=== PATIENT | female | born 1965 | race Caucasian/White ===

== ENCOUNTER → 2017-06-27 | Day surgery (SDC) | payer OTHER ==
[~2017-06-27] MED LIST: KETOROLAC TROMETHAMINE 30 MG/ML (IVP) VIAL IV PUSH ONE; LACTATED RINGER'S 1000 ML INJ 1,000 ML ONE; MIDAZOLAM HCL 2 MG/2 ML VIAL ONE; ONDANSETRON HCL 4 MG/2 ML VIAL IV PUSH ONE; PROPOFOL 200 MG/20 ML AMP IV ONE; ceFAZolin 2 GM PREMIX 50 ML ONE
--- NOTE | 2017-06-27 20:32 | MP ---
cc: FELIZ SHARMA M.D., STEPHEN J. M.D. DATE OF SURGERY 06/27/2017 PREOPERATIVE DIAGNOSIS Patient with perimenopausal menorrhagia, documented submucous myoma. PROCEDURE Hysteroscopic endoscopy, MyoSure myomectomy with resection of submucous myoma, endometrial ablation with the NovaSure device. POSTOPERATIVE DIAGNOSIS Hysteroscopic endoscopy, MyoSure myomectomy with resection of submucous myoma, endometrial ablation with the NovaSure device. SURGEON David Main MD ANESTHESIA General with LMA. ESTIMATED BLOOD LOSS 50 mL. DRAINS None. OPERATIVE FINDINGS The patient's cervix was slightly patulous and dilated. The endometrial cavity was consistent with the preoperative diagnosis of a posterior 2.5 cm submucous myoma. Endometrial cavity otherwise was unremarkable. INDICATIONS FOR PROCEDURE Patient with increasing heavy menstrual cycles transitioning into menopause. Ultrasound revealed the findings as stated above. Endometrial biopsy and Pap smear previously were benign. The patient elected for hysteroscopic resection with endometrial ablation. DESCRIPTION OF PROCEDURE The patient received 2 grams of Ancef prophylactically. She underwent general anesthesia with LMA placement. She was carefully positioned in dorsolithotomy position using candy-cane stirrups on the lower extremities. She had sequentials placed on lower extremities for VTE prophylaxis. She was prepped and draped and a time-out was then conducted and agreed by all present in the room. Examination of the cervix was identified as above. Simple weighted retractor was used. Cervix was secured anteriorly with a single-tooth tenaculum and then the cervix was dilated to accommodate the MyoSure hysteroscope. The hysteroscope was used with normal saline. Examination of the cavity was described above. The MyoSure device was utilized resecting the myoma posteriorly. Fluid instilled and removed was accounted for. There was o excessive deficit. After completion of the MyoSure portion of the procedure, the NovaSure was utilized. Cavity measurements were set at 6 and 3.5 generated a wattage of 116 pierre on the power generator. Electrodesiccation of the cavity was accomplished after complete seal was made. This required two uses of the NovaSure after excessive fluid removal from the vacuum aspect of the NovaSure became full. This was not complicated and resulted in a good result with electrodesiccation of the cavity. After the completion of the case cavity assessment was intact. There was no perforation. The patient was stable. Full final count was correct. She was taken to recovery room extubated on room air. David Main MD [id number] /1:04 PM /8:23 PM
== END | disposition home or self-care (01) ==
LOC: ESDC 07:12
PROVIDERS: ATTEND Obstetrics & Gynecology
DX: N92.4 Excessive bleeding in the premenopausal period (principal); D25.9 Leiomyoma of uterus, unspecified
CPT/HCPCS: 00952; 58561; 58563; 88305; J0690; J1885; J2250; J2405; J3010; J7120